=== PATIENT | male | born 2000 | race Caucasian/White ===

== ENCOUNTER 2023-01-21 14:41 | Emergency (ER) | payer OTHER ==
[~2023-01-21] VITALS: Ht 188 cm; Wt 72.6 kg
[~2023-01-21 14:41] MED LIST: ACET325UDC; AMOX50SU PO; RXPROCODSY PO
[2023-01-21 16:07] VITALS: BP 116/68
== END 2023-01-21 18:15 | disposition home or self-care (01) ==
LOC: ER 14:41
DX: L02.214 Cutaneous abscess of groin (principal); F17.290 Nicotine dependence, other tobacco product, uncomplicated
CPT/HCPCS: 54700; 99283; A9270

== ENCOUNTER 2024-08-16 22:50 | Emergency (ER) | payer OTHER ==
[~2024-08-16] VITALS: Ht 188 cm; Wt 77.1 kg
[2024-08-16 23:17] VITALS: BP 133/80
== END 2024-08-17 01:52 | disposition home or self-care (01) ==
LOC: ER 22:50
DX: S93.401A Sprain of unspecified ligament of right ankle, initial encounter (principal); F17.290 Nicotine dependence, other tobacco product, uncomplicated; X50.1XXA Overexertion from prolonged static or awkward postures, initial encounter; Y93.74 Activity, frisbee
CPT/HCPCS: 73610; 99283-25